=== PATIENT | female | born 1995 ===

== ENCOUNTER 2023-03-24 11:22 | Emergency (ER) | payer BC, OTHER ==
[2023-03-24] MEDS ORDERED: Sodium Chloride 0.9% 2.5 ML Syringe FLUSH PRN (13:34)
[2023-03-24] MEDS ORDERED: Sodium Chloride 0.9% 10 ML Syringe FLUSH PRN (13:34)
[2023-03-24] MEDS ORDERED: Promethazine 25 MG/ML SDV IM STA (13:35)
[2023-03-24] MEDS ORDERED: Sodium Chloride 0.9% 1,000 ML IV STA (13:35)
[2023-03-24 13:50] LABS: BASOPHILS PERCENT AUTO 0.3 % (0.0-1.5); EOSINOPHILS PERCENT AUTO 0.3 % (0.0-7.0); HEMATOCRIT 38.9 % (36.0-46.0); HEMOGLOBIN 13.7 g/dL (12.0-16.0); LYMPHOCYTES ABSOLUTE AUTO 1.5 K/uL (0.6-2.4); LYMPHOCYTES PERCENT AUTO 16.6 % (16.0-40.0); MEAN CORPUSCULAR HEMOGLOBIN 30.9 pg (27.0-32.0); MEAN CORPUSCULAR HGB CONC 35.2 g/dL (31.0-37.0); MEAN CORPUSCULAR VOLUME 87.6 fL (80.0-98.0); MONOCYTES ABSOLUTE AUTO 0.7 K/uL (0.0-0.8); MONOCYTES PERCENT AUTO 7.3 % (0.0-15.0); NEUTROPHILS ABSOLUTE AUTO 6.7 K/uL (1.4-5.7); NEUTROPHILS PERCENT AUTO 75.5 % (48.0-80.0); NRBC ABSOLUTE 0 K/uL; PLATELET COUNT,PLT 232 K/uL (150-400); RED BLOOD CELL COUNT 4.44 M/uL (4.30-5.90); WHITE BLOOD CELL COUNT,WBC 8.91 K/uL (4.0-11.0)
[2023-03-24 13:55] LABS: APPEARANCE,URINE CLEAR; COLOR,URINE YELLOW; GLUCOSE,URINE NEGATIVE (NEGATIVE); KETONES,URINE >=80 mg/dL (NEGATIVE); LEUKOCYTE ESTERASE,URINE TRACE (NEGATIVE); NITRITE,URINE NEGATIVE (NEGATIVE); OCCULT BLOOD,URINE NEGATIVE (NEGATIVE); PROTEIN,URINE TRACE mg/dL (NEGATIVE)
[2023-03-24 13:56] LABS: BILIRUBIN,URINE MODERATE (NEGATIVE)
[2023-03-24 14:07] LABS: EPITHELIAL CELLS,URINE MODERATE (NONE-FEW); RBC,URINE NONE SEEN (0-2/HPF); WBC,URINE 0-5 (0-5/HPF)
[2023-03-24 14:08] LABS: BACTERIA,URINE FEW (NEGATIVE); MUCUS,URINE LIGHT (NONE-MOD)
[2023-03-24] MEDS ORDERED: Dextrose 5%-0.9% NaCl 1,000 ML IV STA ×2 (14:17→16:23)
[2023-03-24 14:29] LABS: A/G RATIO 0.8 (0.9-1.6); ALBUMIN 3.6 g/dL (3.4-5.0); BILIRUBIN TOTAL 0.6 mg/dL (0.2-1.0); CALCIUM 9.7 mg/dL (8.5-10.1); CARBON DIOXIDE,CO2 22.8 mmol/L (21.0-32.0); CREATININE 0.6 mg/dL (0.6-1.0); EST CRCL DRUG DOSING (CG) 123.77 mL/min; POTASSIUM,K 3.3 mmol/L (3.5-5.1); PROTEIN TOTAL,TP 8.1 g/dL (6.4-8.2)
[2023-03-24] MEDS ORDERED: Potassium Chloride 20 MEQ Tab.ER PO STA (14:37)
== END 2023-03-24 17:40 | disposition home or self-care (01) ==
LOC: MW.ED 11:22
DX: O21.1 Hyperemesis gravidarum with metabolic disturbance (principal); O23.12 Infections of bladder in pregnancy, second trimester; N30.00 Acute cystitis without hematuria; Z3A.14 14 weeks gestation of pregnancy
CPT/HCPCS: 36415; 80053; 81001; 83735; 85025; 87086; 96360; 96361; 96372; 99284; A9270; J2550; J3490; J7030; J7042; 36410

== ENCOUNTER 2023-09-01 06:13 | Inpatient (IN) | payer BC ==
[2023-09-01] MEDS ORDERED: Misoprostol 200 MCG Tab PO PRN (06:47)
[2023-09-01] MEDS ORDERED: Water For Irrigation,Sterile 1,000 ML Container IRR PRN (06:47)
[2023-09-01] MEDS ORDERED: Sodium Chloride 0.9% 2.5 ML Syringe FLUSH PRN (06:47)
[2023-09-01] MEDS ORDERED: Carboprost Tromethamine 250 MCG/1 mL Vial IM PRN (06:47)
[2023-09-01] MEDS ORDERED: Methylergonovine 0.2 MG/1 ML Amp IM PRN (06:47)
[2023-09-01] MEDS ORDERED: Butorphanol 1 MG/ML SDV IVPUSH PRN (06:47)
[2023-09-01] MEDS ORDERED: Sodium Chloride 0.9% 10 ML Syringe FLUSH PRN (06:47)
[2023-09-01] MEDS ORDERED: Sodium Chloride 0.9% 20 ML SDV IV PRN (06:47)
[2023-09-01] MEDS ORDERED: Tranexamic Acid IN NACL,ISO-OS 1,000 MG in Premix Bag 1 BAG IV PRN ×2 (06:47)
[2023-09-01] MEDS ORDERED: Lidocaine 1% 50 ML MDV INJECT PRN (06:47)
[2023-09-01] MEDS ORDERED: Terbutaline 1 MG/ML SDV SUBCUT PRN (06:49)
[2023-09-01] MEDS ORDERED: Misoprostol 25 MCG (1/4 of 100 MCG) Tab VAG PRN (06:49)
[2023-09-01] MEDS ORDERED: Misoprostol 25 MCG (1/4 of 100 MCG) Tab PO PRN (06:49)
[2023-09-01] MEDS ORDERED: Oxytocin/0.9 % Sodium Chloride 30 UNIT/500 ML BAG IV SCH ×2 (07:00→13:00)
[2023-09-01] MEDS ORDERED: Nalbuphine 10 MG/0.5 ML Syringe IVPUSH ONE (07:55)
[2023-09-01] MEDS ORDERED: Ondansetron 4 MG/2 ML SDV IVPUSH PRN (07:55)
[2023-09-01 09:37] LABS: HEMATOCRIT 33.4 % (37.0-47.0); HEMOGLOBIN 11.3 g/dL (12.0-16.0); MEAN CORPUSCULAR HGB CONC 33.8 g/dL (32.0-36.0); MEAN CORPUSCULAR VOLUME 91.8 fL (83.0-99.0); MEAN PLATELET VOLUME 11.5 fL (9.4-12.3); PLATELET COUNT,PLT 240 K/uL (150-400); RED BLOOD CELL COUNT 3.64 M/uL (4.10-5.30); WHITE BLOOD CELL COUNT,WBC 14.49 K/uL (3.9-11.3)
[2023-09-01] MEDS ORDERED: Labetalol 100 MG Tab PO ONE (10:19)
[2023-09-01] MEDS: Lactated Ringers 1,000 ML IV SCH (16:15)
[2023-09-01] MEDS ORDERED: Bupivacaine 0.5% 10 ML SDV ONE (16:21)
[2023-09-01] MEDS ORDERED: Phenylephrine HCl 0.5 MG/5 ML AMP ONE (16:21)
[2023-09-01] MEDS ORDERED: Ropivacaine HCl/PF 200 ML ONE (16:21)
[2023-09-01] MEDS ORDERED: Phenylephrine HCl 0.5 MG/5 ML AMP IVPUSH PRN (16:48)
[2023-09-01] MEDS ORDERED: ePHEDrine 50 MG/ML SDV IVPUSH PRN ×2 (16:48)
[2023-09-01] MEDS ORDERED: Ropivacaine HCl/PF 400 MG in Premix Bag 1 BAG EPIDUR SCH (17:00)
[2023-09-02] MEDS: Lactated Ringers 1,000 ML IV SCH ×3 (00:17→09:50)
[2023-09-02] MEDS ORDERED: Ropivacaine 0.5% 5 MG/ML 30 ML SDV ONE (12:32)
[2023-09-02] MEDS ORDERED: ceFAZolin 1 GM Vial ONE (12:32)
[2023-09-02] MEDS ORDERED: ePHEDrine 50 MG/ML SDV ONE (12:32)
[2023-09-02] MEDS ORDERED: Ondansetron 4 MG/2 ML SDV ONE (12:32)
[2023-09-02] MEDS ORDERED: Oxytocin 10 Units/1 ML SDV ONE (12:32)
[2023-09-02] MEDS ORDERED: Bupivacaine 0.25% 30 ML SDV ONE (12:32)
[2023-09-02] MEDS ORDERED: Ketorolac 30 MG/ML SDV ONE (12:32)
[2023-09-02] MEDS ORDERED: fentaNYL 100 MCG/2 ML SDV ONE (12:33)
[2023-09-02] MEDS ORDERED: Morphine PF 10 MG/10 ML SDV ONE (12:33)
[2023-09-02] MEDS ORDERED: EPINEPHrine 1 MG/1 ML Amp ONE (13:49)
[2023-09-02] MEDS ORDERED: Lanolin 100% Cream 7 GM Tube TOP PRN (14:26)
[2023-09-02] MEDS ORDERED: Misoprostol 200 MCG Tab RECTAL PRN (14:26)
[2023-09-02] MEDS ORDERED: Ondansetron 4 MG/2 ML SDV IVPUSH PRN ×3 (14:26→14:41)
[2023-09-02] MEDS ORDERED: Bisacodyl 10 MG Supp RECTAL PRN (14:26)
[2023-09-02] MEDS ORDERED: Methylergonovine 0.2 MG/1 ML Amp IM PRN (14:26)
[2023-09-02] MEDS ORDERED: Oxytocin 10 Units/1 ML SDV IM PRN (14:26)
[2023-09-02] MEDS ORDERED: Acetaminophen/oxyCODONE 325-5 MG Tab PO PRN ×2 (14:26→14:41)
[2023-09-02] MEDS ORDERED: diphenhydrAMINE 50 MG/ML SDV IVPUSH PRN ×2 (14:26→14:41)
[2023-09-02] MEDS ORDERED: Oxytocin/0.9 % Sodium Chloride 30 UNIT/500 ML BAG IV SCH (14:30)
[2023-09-02] MEDS ORDERED: Lactated Ringers 1,000 ML IV SCH (14:30)
[2023-09-02] MEDS ORDERED: Albuterol 0.083% 2.5 MG/3 ML Neb Soln NEB PRN (14:41)
[2023-09-02] MEDS ORDERED: Metoclopramide 10 MG/2 ML SDV IVPUSH PRN (14:41)
[2023-09-02] MEDS ORDERED: fentaNYL 50 MCG/ML SDV IVPUSH PRN (14:41)
[2023-09-02] MEDS ORDERED: fentaNYL 100 MCG/2 ML SDV IVPUSH PRN (14:41)
[2023-09-02] MEDS ORDERED: HYDROmorphone 1 MG/ML Syringe IVPUSH PRN (14:41)
[2023-09-02] MEDS ORDERED: Morphine 2 MG/ML SYRINGE IVPUSH PRN (14:41)
[2023-09-02] MEDS ORDERED: droPERidol 5 MG/2 ML SDV IVPUSH PRN (14:41)
[2023-09-02] MEDS ORDERED: ePHEDrine 50 MG/ML SDV IVPUSH PRN (14:41)
[2023-09-02] MEDS ORDERED: Naloxone 0.4 MG/ML SDV IVPUSH PRN (14:41)
[2023-09-02] MEDS: Acetaminophen 1,000 MG in Premix Bag 1 BAG IV SCH ×2 (16:30→22:41)
[2023-09-02] MEDS ORDERED: Ketorolac 30 MG/ML SDV IVPUSH SCH (18:30)
[2023-09-02] MEDS: Docusate Sodium 100 MG Cap PO SCH (21:00)
[2023-09-03] MEDS: Ketorolac 30 MG/ML SDV IVPUSH SCH ×3 (02:17→13:02)
[2023-09-03] MEDS: Acetaminophen 1,000 MG in Premix Bag 1 BAG IV SCH ×2 (05:11→10:24)
[2023-09-03 07:02] LABS: HEMATOCRIT 28.1 % (37.0-47.0); HEMOGLOBIN 9.4 g/dL (12.0-16.0)
[2023-09-03] MEDS: Docusate Sodium 100 MG Cap PO SCH ×2 (10:24→20:34)
[2023-09-03] MEDS: Ibuprofen 800 MG Tab PO PRN (20:32)
[2023-09-03] MEDS: Acetaminophen/oxyCODONE 325-5 MG Tab PO PRN (20:33)
[2023-09-04] MEDS: Acetaminophen/oxyCODONE 325-5 MG Tab PO PRN (00:38)
[2023-09-04] MEDS: Ibuprofen 800 MG Tab PO PRN (06:32)
[2023-09-04] MEDS: Docusate Sodium 100 MG Cap PO SCH (08:16)
== END 2023-09-04 13:25 | disposition home or self-care (01) | DRG 540 ==
LOC: MW.OBCHECK 06:13 → MW.OB 06:14 → OBSVTOIN 06:47 → MW.OBCHECK 06:51 → MW.OB 09-03 00:09
PROVIDERS: ADMIT Obstetrics & Gynecology Obstetrics; ATTEND Obstetrics & Gynecology Obstetrics
PROC: 10D00Z1 Extraction of Products of Conception, Low, Open Approach (ICD-10-PCS; principal; 2023-09-01)
PROC: 3E0R3BZ Introduction of Anesthetic Agent into Spinal Canal, Percutaneous Approach (ICD-10-PCS; 2023-09-01)
PROC: 00HU33Z Insertion of Infusion Device into Spinal Canal, Percutaneous Approach (ICD-10-PCS; 2023-09-01)
DX: O42.02 Full-term premature rupture of membranes, onset of labor within 24 hours of rupture (principal); D62 Acute posthemorrhagic anemia; O26.893 Other specified pregnancy related conditions, third trimester; Z67.11 Type A blood, Rh negative; O99.214 Obesity complicating childbirth; O62.1 Secondary uterine inertia; O90.81 Anemia of the puerperium; Z3A.38 38 weeks gestation of pregnancy; Z37.0 Single live birth
CPT/HCPCS: 36415; 51702; 59025; 84112; 85014; 85018; 85027; 86592; 86850; 86900; 86901; A9270-GY; J0131; J0171; J0665; J0690; J1100; J1885; J2274; J2371; J2405; J2590; J2795; J3010; J3490; J7120